=== PATIENT | male | born 1980 | race American Indian/Alaskan Native ===

== ENCOUNTER 2017-11-25 12:10 | Day surgery (SDC) | payer MEDICAID ==
[~2017-11-25 12:10] MED LIST: XYLOCAINE MPF 2% ONE
[2017-11-25] MEDS ORDERED: NACL 0.9% 1000 ML 1,000 ML IV SCH (13:00)
--- NOTE | 2017-11-25 15:44 | Anesthesia Consultation ---
Anesthesia Consult and Med Hx Date of service: 11/25/17 - Airway Anesthetic Teeth Evaluation: Good ROM Head & Neck: Adequate Mental/Hyoid Distance: Adequate Mallampati Class: Class II Intubation Access Assessment: Probably Good - Pulmonary Exam CTA: Yes - Cardiac Exam Cardiac Exam: RRR - Pre-Operative Health Status ASA Pre-Surgery Classification: ASA2 Proposed Anesthetic Plan: MAC - Pulmonary Hx Smoking: Yes (SMOKE 2 PKS/DAY PLUS MARIJUANA)
--- NOTE | 2017-11-25 15:45 | Anesthesia Day of Surgery ---
Anesthesia Day of Surgery - Day of Surgery Patient Examined: Yes Patient H&P Reviewed: Yes Patient is NPO: Yes
[2017-11-25] MEDS ORDERED: DIPRIVAN 10 MG/ML IV ONE ×2 (16:23)
[2017-11-25] MEDS ORDERED: VERSED ONE (16:24)
[2017-11-25] MEDS ORDERED: WATER FOR IRRIG STERILE IR ONE ×2 (16:43→17:04)
[2017-11-25] MEDS ORDERED: WATER FOR IRRIG STERILE ONE (17:05)
--- NOTE | 2017-11-25 17:17 | Operative Report ---
Operative Report Operative Report: Date of procedure: 11/25/2017 Procedure: Esophagogastroduodenoscopy multiple mucosal biopsies. Attending physician: Lex Esquivel MD Injection Mold Technician: Lex Esquivel MD Indication: Patient is a 37-year-old male who presents with history of recurrent epigastric pain. An upper endoscopy is done to evaluate him so that treatment may be directed based on the findings. Consent: Informed consent was obtained after advising the patient and family regarding nature of this procedure, its indications, potential benefits as well as possible complications including but not limited to bleeding perforation and adverse reaction to medication, infection as well as other cardiopulmonary complications. An informed written and verbal consent was then obtained after due opportunity was provided for questions and answers. Monitoring: Patient was monitored continuously with pulse oximetry and electrocardiographic recordings as well as blood pressure recordings. Vital signs remained stable throughout this procedure with no untoward events. Preoperative assessment: Patient was assessed immediately prior to this procedure for capacity to tolerate monitored anesthesia care and moderate sedation as well as general anesthesia. Patient's ASA classification is 1, Mallampati class is 2, Hyomental distance is 3. Instrument: [employer] video endoscope Medications: Propofol given intravenously in divided doses. For details please refer to anesthesia records. Description of procedure: Patient was placed in the left lateral decubitus position after achieving sedation, the endoscope was introduced into the esophagus under direct vision. It was then advanced beyond the esophagus into the stomach and then beyond the stomach into the duodenum and to the second portion of the duodenum. It was subsequently withdrawn with careful inspection of all mucosal surfaces with the following findings. Findings: The esophagus was relatively normal however the Z line was irregular at 39 cm. There was a 2-3 cm sliding hiatal hernia seen on entering into the stomach. In the center of the gastric body, there was a centrally umbilicated area with a central dimple. The endoscopic significance of this is not clear however the endoscopic appearance is not pathognomonic. This could represent a pancreatic rest. It had surrounding erosions. It was biopsied. It was very friable. There were no other gross mucosal abnormalities seen in the antrum. The pyloric channel was normal. The duodenum was normal to second portion. Impression: Irregular Z line. Sliding hiatal hernia. Abnormal appearing area in the gastric body with central umbilication and a dimple in the middle with surrounding erosion. Plan: Patient appears to have benefited from treatment with proton pump inhibitors so far. This should be continued. Will follow the pathology report report on the biopsies of the gastric body. Will direct additional treatment based on the pathology report and patient's clinical course.
--- NOTE | 2017-11-25 17:20 | Operative Report ---
Operative Report Operative Report: Date of procedure: 11/25/2017 Procedure: Colonoscopy. Attending physician: Lex Esquivel MD Security Technician: Lex Esquivel MD Indication: Patient is a 37-year-old male who presented with rectal bleeding. A colonoscopy serves to evaluate patient so that treatment may be directed based on the findings. Consent: Informed consent was obtained after advising the patient and family regarding nature of this procedure, its indications, potential benefits as well as possible complications including but not limited to bleeding perforation and adverse reaction to medication, infection as well as other cardiopulmonary complications. An informed written and verbal consent was then obtained after due opportunity was provided for questions and answers. Monitoring: Patient was monitored continuously with pulse oximetry and electrocardiographic recordings as well as blood pressure recordings. Vital signs remained stable throughout this procedure with no untoward events. Preoperative assessment: Patient was assessed immediately prior to this procedure for capacity to tolerate monitored anesthesia care and moderate sedation as well as general anesthesia. Patient's ASA classification is 2, Mallampati class is 2, Hyomental distance is 3. Instrument: [employer] video colonoscope Medications: Propofol given intravenously in divided doses. For details please refer to anesthesia records. Description of procedure: Patient was placed in the left lateral decubitus position after achieving sedation, a digital rectal examination was performed following which the colonoscope was introduced into the anal verge and advanced to the cecum which was identified by the ileocecal valve, the appendiceal orifice, as well as by the cecal strap and direct transillumination. The colonoscope was subsequently withdrawn with careful inspection of all mucosal surfaces. Patient tolerated this procedure well and was subsequently taken to the recovery room. The following findings were noted. Findings: The entirety of the colon to the cecum was normal. On the retroflex view at the anal verge, patient had prominent internal hemorrhoids . Impression: Normal colonoscopy. Internal hemorrhoids. Plan: High-fiber diet. Prn stool softeners. Possible hemorrhoidal band ligation if recurrent bleeding.
--- NOTE | 2017-11-25 17:21 | Discharge Summary ---
Short Stay Discharge Plan Activity: advance as tolerated Weight Bearing Status: Weight Bear as Tolerated Diet: regular Follow up with: JOVANI CLAY MD [Primary Care Provider] - 7 Days
[2017-11-25 17:54] VITALS: BP 99/59
== END 2017-11-25 12:11 | disposition home or self-care (01) ==
LOC: GIO 12:10
PROVIDERS: ATTEND Internal Medicine Gastroenterology
DX: K62.5 Hemorrhage of anus and rectum (principal); K59.00 Constipation, unspecified; K44.9 Diaphragmatic hernia without obstruction or gangrene; K22.9 Disease of esophagus, unspecified; F17.210 Nicotine dependence, cigarettes, uncomplicated
CPT/HCPCS: 43239; 45378; 88305; 88342; J2250; J2704; J7030

== ENCOUNTER 2019-11-12 11:24 | Emergency (ER) | payer SELFPAY ==
[2019-11-12] MEDS ORDERED: IBUPROFEN 800 MG TAB PO ONE (14:15)
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
--- NOTE | 2019-11-12 15:04 | XRay Report ---
LEFT RIBS, PA CHEST RADIOGRAPH HISTORY: COMPARISON: None. TECHNIQUE: 2 views of the left ribs were obtained. Single view of the chest also obtained. FINDINGS: Left Ribs: Bones: No fracture or dislocation. Joint spaces: Maintained. Soft tissues: No significant abnormality. Chest: Cardiomediastinal silhouette: Normal cardiac size. Normal mediastinal contours. Lungs: Normal expansion. Normal lung aeration. No pleural effusions. No pneumothorax. Pulmonary vascularity: Normal. Additional findings: None. IMPRESSION: 1. Normal. Signer Name: Antonio Vega MD Signed: 11/12/2019 3:00 PM Workstation Name: [id number]
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
[2019-11-12 15:47] VITALS: BP 111/72
== END 2019-11-12 15:46 | disposition home or self-care (01) ==
LOC: ED 11:24
DX: S13.4XXA Sprain of ligaments of cervical spine, initial encounter (principal); S20.211A Contusion of right front wall of thorax, initial encounter; Z79.899 Other long term (current) drug therapy; V49.49XA Driver injured in collision with other motor vehicles in traffic accident, initial encounter; Y93.89 Activity, other specified; Y92.488 Other paved roadways as the place of occurrence of the external cause; Y99.8 Other external cause status
CPT/HCPCS: 72040